=== PATIENT | female | born 1970 | race Caucasian/White ===

== ENCOUNTER 2021-10-29 05:31 | Inpatient (IN) ==
[2021-10-28 12:28] LABS: Basophils % 0.3 % (0.0-0.8); Hematocrit 40.4 VOL% (35.7-47.0); Hemoglobin 13.6 GM/DL (12.0-16.0); Immature Granulocytes % 2.4 %; Immature Granulocytes Absolute 0.18 #; Lymphocytes # 1.9 10*3/uL (1.4-4.0); Lymphocytes % 25.5 % (21.3-54.2); Mean Corpuscular HGB Conc 33.7 GM/DL (32-36); Mean Corpuscular Volume 87.4 FL (87-102); Mean Platelet Volume 10.6 FL (9.6-12.0); Monocytes # 0.4 10*3/uL (0.11-0.8); Neutrophils % 66.8 % (38.7-73.9); Platelet Count 302 T/CUMM (130-400); Red Blood Count 4.62 MC/CUMM (3.8-5.5); Red Cell Distribution Width 12.9 % (9.3-17.3); White Blood Count 7.6 T/CUMM (4-12)
[2021-10-28 12:32] LABS: Mucus,Urine Occasional /LPF (Occasional); RBC,Urine 1 /HPF (0-4); Squamous Epithelial Cell,Urine Occasional /HPF (0-10)
[2021-10-28 12:33] LABS: Bilirubin,Urine Negative (Negative); Blood, Urine Negative (Negative); Glucose,Urine (UA) Negative (Negative); Ketones,Urine Negative (Negative); Nitrite,Urine Negative (Negative); Protein,Urine Negative (Negative); Urine Appearance Clear (Clear); Urine Color Yellow (Yellow); Urine Urobilinogen 0.2 eU/dL (<2.0)
[2021-10-28 12:41] LABS: Albumin 4.3 G/DL (3.4-5.0); Bilirubin,Total 0.4 MG/DL (0.20-1.00); Calcium 9.8 MG/DL (8.5-10.1); Osmolality,Calculated 276.4 MOS/KG (273-304); Potassium 4.1 MMOL/L (3.5-5.1); Risk Ratio 3.95; Total Protein 7.7 G/DL (6.4-8.2); VLDL Cholesterol 37.6 MG/DL
[2021-10-28 13:10] LABS: HIV Antigen/Antibody Result Nonreactive (Nonreactive)
[2021-10-29] MEDS ORDERED: AMPICILLIN/SULBACTAM 3,000 MG in SODIUM CHLORIDE 0.9% 100 ML IV ONE (06:00)
[2021-10-29] MEDS ORDERED: ONDANSETRON 4 MG/2 ML VIAL ONE ×2 (06:19→07:42)
[2021-10-29] MEDS ORDERED: propofoL 200 MG/20 ML VIAL IV ONE (06:19)
[2021-10-29] MEDS ORDERED: fentaNYL 100 MCG/2 ML VIAL ONE ×2 (06:19→07:27)
[2021-10-29] MEDS ORDERED: ROCURONIUM 50 MG/5 ML VIAL IV ONE (06:19)
[2021-10-29] MEDS ORDERED: SEVOFLURANE 1 UNIT/15 MINUTE INH ONE ×4 (06:19→08:12)
[2021-10-29] MEDS ORDERED: MIDAZOLAM 2 MG/2 ML VIAL ONE (06:19)
[2021-10-29] MEDS ORDERED: LIDOCAINE 2% 5 ML VIAL ONE (06:19)
[2021-10-29] MEDS ORDERED: FAMOTIDINE 20 MG TABLET PO ONE (06:29)
[2021-10-29] MEDS ORDERED: DIAZEPAM 5 MG TABLET PO ONE (06:29)
[2021-10-29] MEDS ORDERED: ACETAMINOPHEN 500 MG TABLET PO ONE (06:29)
[2021-10-29] MEDS ORDERED: GABAPENTIN 400 MG CAPSULE PO ONE (06:29)
[2021-10-29] MEDS ORDERED: LACTATED RINGERS 1,000 ML IV SCH (06:30)
[2021-10-29] MEDS ORDERED: ROPIVACAINE 0.5% 30 ML VIAL ONE (06:31)
[2021-10-29] MEDS ORDERED: DEXAMETHASONE 4 MG/1 ML VIAL ONE ×2 (06:31→07:42)
[2021-10-29] MEDS ORDERED: LIDOCAINE 1% 5 ML VIAL ONE (06:32)
[2021-10-29] MEDS ORDERED: SCOPOLAMINE 1.5 MG PATCH TRANSDERM ONE (06:32)
[2021-10-29] MEDS ORDERED: LACTATED RINGERS 1,000 ML IV ONE (07:47)
[2021-10-29] MEDS ORDERED: SUGAMMADEX 200 MG/2 ML VIAL IV ONE (07:50)
[2021-10-29] MEDS ORDERED: KETOROLAC 30 MG/1 ML VIAL ONE (07:52)
[2021-10-29] MEDS ORDERED: ONDANSETRON 4 MG/2 ML VIAL IV PRN ×2 (08:13→09:01)
[2021-10-29] MEDS ORDERED: IBUPROFEN 800 MG TABLET PO PRN (08:13)
[2021-10-29] MEDS ORDERED: BISACODYL 10 MG SUPP RECTAL PRN (08:13)
[2021-10-29] MEDS ORDERED: ACETAMINOPHEN 325 MG TABLET PO PRN (08:13)
[2021-10-29] MEDS ORDERED: BENZOCAINE/MENTHOL LOZENGE 18/BOX PO PRN (08:13)
[2021-10-29 08:30] LABS: Bacteria,Urine Occasional /HPF (Few); RBC,Urine 1 /HPF (0-4)
[2021-10-29 08:31] LABS: Bilirubin,Urine Negative (Negative); Blood, Urine Negative (Negative); Glucose,Urine (UA) Negative (Negative); Ketones,Urine Negative (Negative); Nitrite,Urine Negative (Negative); Protein,Urine Negative (Negative); Urine Appearance Clear (Clear); Urine Color Straw (Yellow); Urine Specific Gravity 1.015 (1.001-1.035); Urine Urobilinogen 0.2 eU/dL (<2.0); Urine pH 6.5 (4.5-8.0)
[2021-10-29] MEDS: HYDROmorphone 1 MG/1 ML SYRINGE IV PRN ×5 (09:00→19:28)
[2021-10-29] MEDS ORDERED: MEPERIDINE 25 MG/1 ML VIAL IV PRN (09:08)
[2021-10-29] MEDS ORDERED: MEPERIDINE 50 MG/1 ML VIAL IV PRN (10:26)
[2021-10-29] MEDS: LACTATED RINGERS 1,000 ML IV SCH ×2 (10:36→18:53)
[2021-10-29] MEDS: KETOROLAC 30 MG/1 ML VIAL IV PRN ×2 (15:28→23:00)
[2021-10-29] MEDS ORDERED: ALPRAZolam 0.5 MG TABLET PO PRN (18:05)
[2021-10-29] MEDS: QUEtiapine 25 MG TABLET PO SCH (20:54)
[2021-10-29] MEDS: ARIPiprazole 5 MG TABLET PO SCH (20:59)
[2021-10-30] MEDS: HYDROmorphone 1 MG/1 ML SYRINGE IV PRN (00:03)
[2021-10-30] MEDS: KETOROLAC 30 MG/1 ML VIAL IV PRN (05:00)
[2021-10-30] MEDS: LACTATED RINGERS 1,000 ML IV SCH (05:08)
[2021-10-30 05:35] LABS: Basophils % 0.1 % (0.0-0.8); Hemoglobin 10.3 GM/DL (12.0-16.0); Immature Granulocytes % 1.2 %; Immature Granulocytes Absolute 0.09 #; Lymphocytes # 1.5 10*3/uL (1.4-4.0); Lymphocytes % 19.3 % (21.3-54.2); Mean Corpuscular HGB Conc 33.2 GM/DL (32-36); Mean Corpuscular Volume 89.3 FL (87-102); Mean Platelet Volume 11.1 FL (9.6-12.0); Monocytes # 0.6 10*3/uL (0.11-0.8); Monocytes % 7.6 % (1.7-12.7); Neutrophils % 71.8 % (38.7-73.9); Platelet Count 243 T/CUMM (130-400); Red Blood Count 3.47 MC/CUMM (3.8-5.5); White Blood Count 7.5 T/CUMM (4-12)
[2021-10-30] MEDS: DESVENLAFAXINE 50 MG TABLET PO SCH (08:16)
[2021-10-30] MEDS: DOCUSATE SODIUM 100 MG CAPSULE PO PRN ×2 (08:19→21:47)
[2021-10-30] MEDS: MAGNESIUM HYDROXIDE SUSP 30 ML UDCUP PO PRN (08:20)
[2021-10-30] MEDS: METOCLOPRAMIDE 10 MG TABLET PO SCH (17:20)
[2021-10-30] MEDS: ARIPiprazole 5 MG TABLET PO SCH (21:14)
[2021-10-30] MEDS: QUEtiapine 25 MG TABLET PO SCH (21:14)
[2021-10-31] MEDS: METOCLOPRAMIDE 10 MG TABLET PO SCH ×2 (01:30→08:44)
[2021-10-31] MEDS: MAGNESIUM HYDROXIDE SUSP 30 ML UDCUP PO PRN (07:25)
[2021-10-31 08:03] VITALS: BP 112/55
[2021-10-31] MEDS: DESVENLAFAXINE 50 MG TABLET PO SCH (08:44)
[2021-10-31] MEDS: DOCUSATE SODIUM 100 MG CAPSULE PO PRN (08:44)
== END 2021-10-31 11:20 | disposition home or self-care (01) | DRG 743 ==
LOC: N.SDSINP 05:31 → N.OB 09:34
PROVIDERS: ADMIT Obstetrics & Gynecology; ATTEND Obstetrics & Gynecology